=== PATIENT | female | born 2000 | race Two or more races ===

== ENCOUNTER → 2022-08-25 | Outpatient (CLI) | payer MEDICAID ==
[2022-08-25 10:18] LABS: Basophils # (auto) 0.1 10 ^3/uL (0-0.2); Basophils % (auto) 1.9 % (0.0-2.0); Eosinophils # (auto) 0.1 10 ^3/uL (0-0.8); Eosinophils % (auto) 3.5 % (0.0-7.0); Hematocrit 41.9 % (36.0-46.0); Hemoglobin 14.1 g/dL (12.2-16.2); Lymphocytes # (auto) 1.5 10 ^3/uL (0.4-5.4); Lymphocytes % (auto) 37.5 % (10.0-50.0); Mean Corpuscular Hemoglobin 29.2 pg (28.0-32.0); Mean Corpuscular Hgb Conc. 33.6 g/dL (32.0-36.0); Mean Corpuscular Volume 86.9 fL (80.0-100.0); Monocytes # (auto) 0.3 10 ^3/uL (0-1.3); Neutrophils % (auto) 50.1 % (37.0-80.0); Red Blood Cells 4.82 10^6/uL (4.0-5.20)
[2022-08-25 10:51] LABS: Calcium 9.2 mg/dL (8.5-10.1)
== END | disposition home or self-care (01) ==
LOC: LAB 09:53
PROVIDERS: ATTEND Student in an Organized Health Care Education/Training Program
DX: Z01.84 Encounter for antibody response examination (principal); Z68.30 Body mass index [BMI] 30.0-30.9, adult
CPT/HCPCS: 36415; 80048; 85025

== ENCOUNTER → 2022-10-08 | Outpatient (CLI) | payer MEDICAID | END | disposition home or self-care (01) | LOC: LAB 09:51 | PROVIDERS: ATTEND Student in an Organized Health Care Education/Training Program | DX: Z02.0 Encounter for examination for admission to educational institution (principal); Z20.1 Contact with and (suspected) exposure to tuberculosis | CPT/HCPCS: 36415; 86706; 86735; 86762; 86765; 86787 ==